=== PATIENT | female | born 1945 | race Caucasian/White ===

== ENCOUNTER 2017-01-28 07:59 | Emergency (ER) | payer MEDICARE, OTHER ==
[~2017-01-28] VITALS: Ht 162.6 cm; Wt 90.0 kg
[~2017-01-28 07:59] MED LIST: AGGRENOX; ATENOLOL; NORVASC; TRAMADOL
[2017-01-28 08:05] VITALS: Ht 162.6 cm; Wt 90.0 kg
[2017-01-28] MEDS ORDERED: morphine 4 MG/ML VIAL IV STA (08:19)
[2017-01-28] MEDS ORDERED: SOD CHLORIDE 0.9% 1,000 ML IV STA (08:19)
[2017-01-28] MEDS ORDERED: FAMOTIDINE 20 MG INJ IV STA (08:19)
[2017-01-28 08:37] LABS: ADD SCAN DIFF NO
[2017-01-28 08:49] LABS: BASOPHILS % 0.2 % (0.0-2.0); EOSINOPHILS % 0.3 % (0.0-7.0); HEMATOCRIT 40.8 % (37.0-47.0); HEMOGLOBIN 12.9 g/dl (12.0-16.0); LYMPHOCYTES # 1.9 10^3/ul (0.8-2.9); LYMPHOCYTES % 18.2 % (15.0-51.0); MEAN CORPUSCULAR HGB CONC 31.6 g/dl (32.0-37.0); MEAN CORPUSCULAR VOLUME 85.5 fl (82.0-101.0); MEAN PLATELET VOLUME 9.8 fl (7.4-10.4); MONOCYTE # 0.5 10^3/ul (0.3-0.9); MONOCYTES % 4.4 % (0.0-11.0); NEUTROPHIL # 7.8 10^3/ul (1.6-7.5); NEUTROPHILS % 74.8 % (39.0-77.0); PLATELET COUNT 290 10^3/UL (140-415); RED BLOOD COUNT 4.77 10^6/ul (4.20-5.40); RED CELL DISTRIBUTION WIDTH 14.5 % (11.5-14.5); WHITE BLOOD COUNT 10.5 10^3/ul (4.8-10.8)
[2017-01-28] MEDS ORDERED: FOLI-49 PO (08:53)
[2017-01-28] MEDS ORDERED: GABA300C16 PO (08:55)
[2017-01-28 08:56] LABS: ALANINE AMINOTRANSFERASE 22 IU/L (13-69); ALBUMIN 4.3 g/dl (3.3-4.9); ALBUMIN/GLOBULIN RATIO 0.95; ALKALINE PHOSPHATASE 58 IU/L (42-121); ANION GAP 13 (8-16); ASPARTATE AMINO TRANSFERASE 20 IU/L (15-46); BILIRUBIN,INDIRECT 0.1 mg/dl (0-1.1); BILIRUBIN,TOTAL 0.1 mg/dl (0.2-1.3); BLOOD UREA NITROGEN 10 mg/dl (7-20); CALCIUM 9.8 mg/dl (8.4-10.2); CARBON DIOXIDE 25 mmol/L (21-31); CHLORIDE 107 mmol/L (97-110); CREATININE 0.51 mg/dl (0.44-1.00); GLUCOSE 238 mg/dl (70-220); POTASSIUM 3.6 mmol/L (3.5-5.1); SODIUM 141 mmol/L (135-144); TOTAL PROTEIN 8.8 g/dl (6.1-8.1)
[2017-01-28] MEDS ORDERED: CHOL500010 PO (08:56)
[2017-01-28] MEDS ORDERED: ATEN50TA PO (08:56)
[2017-01-28] MEDS ORDERED: FURO20TA3 PO (08:57)
[2017-01-28] MEDS ORDERED: DEXL60CA2 PO (08:57)
[2017-01-28 08:58] LABS: INR 1.01; PROTIME 13.3 Sec (12.2-14.2)
[2017-01-28] MEDS ORDERED: AMLO5TAB4 PO (08:58)
[2017-01-28] MEDS ORDERED: ICOS1CAP PO (08:58)
[2017-01-28 08:59] LABS: PARTIAL THROMBOPLASTIN TIME 34.3 Sec (25.0-35.0)
[2017-01-28] MEDS ORDERED: ASPI-664 PO (08:59)
[2017-01-28] MEDS ORDERED: ASPI1CPM8 PO (09:03)
[2017-01-28] MEDS ORDERED: LEVO75TA65 PO (09:04)
[2017-01-28] MEDS ORDERED: METF500T4 PO (09:05)
[2017-01-28] MEDS ORDERED: RAMI5CAP46 PO (09:06)
[2017-01-28] MEDS ORDERED: SITA50TA2 PO (09:06)
[2017-01-28] MEDS ORDERED: DICL75TA2 PO (09:07)
[2017-01-28] MEDS ORDERED: CRES10 PO (09:07)
[2017-01-28] MEDS ORDERED: OLME1TAB5 PO (09:08)
[2017-01-28] MEDS ORDERED: ALBU18HF INHALATION (09:09)
[2017-01-28] MEDS ORDERED: TOLT2CAP7 PO (09:10)
[2017-01-28 09:12] LABS: TROPONIN-I < 0.012 ng/ml (0.00-0.12)
--- NOTE | 2017-01-28 11:03 | RADRPT ---
PROCEDURE: CT Abdomen and Pelvis without contrast. CLINICAL INDICATION: Abdominal pain. Blood in the stool. TECHNIQUE: CT scan of the abdomen and pelvis without contrast was performed on a multidetector hig h-resolution CT scanner. The patient was scanned without intravenous contrast. Coronal and sagittal reformatted images were obtained from the axial source images. Images were reviewed on a high-resol [employer] PACS workstation. The total exam CTDI equals 23.29 mGy and the total exam DLP equals 1314.40 m Gy-cm. One or more of the following dose reduction techniques were used: Automated exposure control. Adjustment of the mA and/or kV according to patient size. Use of iterative reconstruction technique. COMPARISON: None FINDINGS: CT abdomen: The lung bases are clear. The heart size is normal, without pericardial thickening or effusion. Den se mitral annulus calcification is present. The liver is normal in size and density without focal ma ss or intrahepatic biliary dilatation. The spleen is normal in size and homogeneous in density. Th e stomach is partially collapsed, but is grossly unremarkable. The pancreas as visualized is normal . The gallbladder is surgically absent. There is no evidence for biliary dilatation. The adrenal g lands are symmetric and normal. The kidneys are symmetrically unremarkable as well. There are bila teral renal cortical cysts measures up to 2.6 cm in the upper pole left kidney. There is a punctate 2 mm nonobstructing stone in the lower pole left kidney. The aorta is of normal caliber. Aortic vascular calcifications are present. There is no retroperit tompkins lymphadenopathy. The amarjit hepatis region is clear. Scattered diverticula are seen in the lef t colon without evidence of acute diverticulitis. There is a tiny fat containing periumbilical herni a. CT pelvis: The small bowel loops situated within the pelvis are unremarkable. There is approximately 3 cm hypod ensity in the left adnexa. The pelvic sidewalls and inguinal regions are clear. The sigmoid colon and rectum are remarkable for sigmoid diverticulosis. No mass, lymphadenopathy, or free fluid is se en. No acute inflammation is seen. The surrounding osseous structures are remarkable for degenerat patrice spondylosis of the spine. No osteolytic or osteoblastic lesion is detected. IMPRESSION: 1. No mass, lymphadenopathy, or focal acute inflammatory process is identified. 2. Mild diverticulosis of the descending and sigmoid colon without evidence of acute diverticulitis . 3. Approximately 3 cm hypodensity in the left adnexa. Consider pelvic ultrasound for further rashid cterization. 4. Punctate 2 mm nonobstructing stone in the left kidney. 5. Small bilateral renal cortical cysts. 6. Status post cholecystectomy. No biliary ductal dilatation. 7. Aortoiliac atherosclerosis. 8. Dense mitral annulus calcifications. 9. Tiny fat containing periumbilical hernia. RPTAT: BB .Tucker Blank MD, MD Date Time Electronically viewed and signed by .Tucker Blank MD, on 01/28/2017 11:02 .O/
[2017-01-28] MEDS ORDERED: HYDR-906 PO (11:36)
[2017-01-28] MEDS ORDERED: RANI150T9 PO (11:36)
--- NOTE | 2017-01-28 11:45 | ERD ---
ER Documentation Chief Complaint Date/Time DATE: 01/28/17 TIME: 11:40 Chief Complaint rectal bleed, bright red stools per ems report, felt dizzy, ap, then bm HPI This 71-year-old female presents emergency room for [facility] today. She also had red blood. She believed that she felt dizzy after she saw the cause of her stools. She is feeling less dizzy now. Also had midabdominal discomfort. She denies shortness of breath, nausea vomiting. She does have a history of a colonoscopy many years ago which polyps were found. ROS All systems reviewed and are negative except as per history of present illness. Medications Home Meds Active Scripts Hydrocodone/Acetaminophen ([place] 5-325 Tablet) 1 Each Tablet, 1 EACH PO Q6, #14 TAB Prov:CHANASANFORD DO 01/28/17 Ranitidine Hcl* (Zantac*) 150 Mg Tablet, 150 MG PO BID Y for EPIGASTRIC PAIN, # 30 TAB Prov:CHANASANFORD DO 01/28/17 Reported Medications Tolterodine Tartrate* (Tolterodine Tartrate* ER) 2 Mg Cap.er.24h, 2 MG PO DAILY , #30 CAP 01/28/17 Albuterol Sulfate* (Ventolin HFA*) 18 Gm Hfa.aer.ad, 1 PUFF INHALATION Q8 Y for SHORTNESS OF BREATH, #1 INHALER 01/28/17 Olmesartan/Hydrochlorothiazide (Benicar Hct 40-25 mg Tablet) 1 Each Tablet, 1 EACH PO DAILY, TAB 01/28/17 Rosuvastatin Calcium* (Crestor*) 10 Mg Tablet, 10 MG PO QHS, #30 TAB 01/28/17 Diclofenac Sodium* (Diclofenac Sodium*) 75 Mg Tablet.dr, 75 MG PO BID, #60 TAB 01/28/17 Ramipril (Ramipril) 5 Mg Capsule, 5 MG PO DAILY, CAP 01/28/17 Sitagliptin* (Januvia*) 50 Mg Tablet, 50 MG PO DAILY, #30 TAB 01/28/17 Metformin Hcl* (Metformin Hcl*) 500 Mg Tablet, 250-500 MG PO WITH DINNER, #30 TAB 01/28/17 Levothyroxine Sodium* (Levoxyl*) 75 Mcg Tablet, 75 MCG PO BEFORE BREAKFAST, #30 TAB 01/28/17 Aspirin-Dipyridamole* (Aggrenox*) 25-200 Mg Cpmp.12hr, 1 CAP PO BID, CAP 01/28/17 Aspirin (Low Dose Aspirin) 81 Mg Tablet., 81 MG PO DAILY, #30 TAB 01/28/17 Icosapent Ethyl (VASCEPA) 1 Gm Capsule, 2 GM PO BID, CAP 01/28/17 Amlodipine Besylate* (Norvasc*) 5 Mg Tablet, 5 MG PO DAILY, TAB 01/28/17 Dexlansoprazole (Dexilant) 60 Mg Cap..mp, 60 MG PO DAILY, #30 CAP 01/28/17 Furosemide* (Furosemide*) 20 Mg Tablet, 20 MG PO DAILY, #60 TAB 01/28/17 Cholecalciferol (Vitamin D3) 5,000 Unit Tablet, 5000 UNIT PO DAILY, TAB 01/28/17 Atenolol* (Atenolol*) 50 Mg Tablet, 50 MG PO BID, #60 TAB 01/28/17 Gabapentin* (Gabapentin*) 300 Mg Capsule, 300 MG PO TID, #90 CAP 01/28/17 Folic Acid* (Folic Acid*) 1 Mg Tablet, 1 MG PO DAILY, TAB 01/28/17 Discontinued Reported Medications [Aggrenox] No Conflict Check 03/22/10 [Atenolol] No Conflict Check 03/22/10 [Norvasc] No Conflict Check 03/22/10 [Tramadol] No Conflict Check 03/22/10 Allergies Allergies: Coded Allergies: Penicillins (Verified Allergy, Mild, 01/28/17) PMhx/Soc History of Surgery: No Anesthesia Reaction: No Hx Neurological Disorder: No Hx Respiratory Disorders: No Hx Cardiac Disorders: Yes (HTN) Hx Psychiatric Problems: No Hx Miscellaneous Medical Probl: No Hx Alcohol Use: No Hx Substance Use: No Hx Tobacco Use: No Smoking Status: Never smoker Physical Exam Vitals Vital Signs Date Time Temp Pulse Resp B/P Pulse Ox O2 Delivery O2 Flow Rate FiO2 01/28/17 08:37 Nasal Cannula 2 01/28/17 08:05 98.1 97 20 170/70 99 Physical Exam Const: [] No distress, pleasant, talkative Head: Atraumatic Eyes: Normal Conjunctiva ENT: Normal External Ears, Nose and Mouth. Neck: Full range of motion..~ No meningismus. Resp: Clear to auscultation bilaterally Cardio: Regular rate and rhythm, no murmurs Abd: Soft, very mild periumbilical abdominal tenderness without guarding or rebound, non distended. Normal bowel sounds Skin: No petechiae or rashes Back: No midline or flank tenderness Ext: No cyanosis, or edema Neur: Awake and alert and oriented, no focal deficits Psych: Normal Mood and Affect Result Diagram: 01/28/17 0829 01/28/17 0829 Results 24 hrs Laboratory Tests Test 01/28/17 08:29 White Blood Count 10.510^3/ul Red Blood Count 4.7710^6/ul Hemoglobin 12.9g/dl Hematocrit 40.8% Mean Corpuscular Volume 85.5fl Mean Corpuscular Hemoglobin 27.0pg Mean Corpuscular Hemoglobin Concent 31.6g/dl Red Cell Distribution Width 14.5% Platelet Count 61881^3/UL Mean Platelet Volume 9.8fl Neutrophils % 74.8% Lymphocytes % 18.2% Monocytes % 4.4% Eosinophils % 0.3% Basophils % 0.2% Nucleated Red Blood Cells % 0.0/100WBC Neutrophils # 7.810^3/ul Lymphocytes # 1.910^3/ul Monocytes # 0.510^3/ul Eosinophils # 0.010^3/ul Basophils # 0.010^3/ul Nucleated Red Blood Cells # 0.010^3/ul Prothrombin Time 13.3Sec Prothrombin Time Ratio 1.0 INR International Normalized Ratio 1.01 Activated Partial Thromboplast Time 34.3Sec Sodium Level 141mmol/L Potassium Level 3.6mmol/L Chloride Level 107mmol/L Carbon Dioxide Level 25mmol/L Anion Gap 13 Blood Urea Nitrogen 10mg/dl Creatinine 0.51mg/dl Glucose Level 238mg/dl Calcium Level 9.8mg/dl Total Bilirubin 0.1mg/dl Direct Bilirubin 0.00mg/dl Indirect Bilirubin 0.1mg/dl Aspartate Amino Transf (AST/SGOT) 20IU/L Alanine Aminotransferase (ALT/SGPT) 22IU/L Alkaline Phosphatase 58IU/L Troponin I < 0.012ng/ml Total Protein 8.8g/dl Albumin 4.3g/dl Globulin 4.50g/dl Albumin/Globulin Ratio 0.95 Current Medications Medications (Trade) Dose Ordered Sig/Eli Route PRN Reason Start Time Stop Time Status Last Admin Dose Admin Sodium Chloride (NS) 1,000 ml @ 1,000 mls/hr Q1H STAT IV 01/28/17 08:19 01/28/17 09:18 DC 01/28/17 09:09 Famotidine (Pepcid Iv) 20 mg ONCE STAT IV 01/28/17 08:19 01/28/17 08:22 DC 01/28/17 09:09 Morphine Sulfate (morphine) 4 mg ONCE STAT IV 01/28/17 08:19 01/28/17 08:22 DC 01/28/17 09:10 Procedures/MDM 71-year-old female with single episode of dark stools with bright red blood. There is not a large amount according to the patient. States that she has mild abdominal pain is had this on and off for some time. She is given a liter of fluid for her diabetic hyperglycemia as well as hydration. She felt much better after this. Her vital signs of in stable as is her hemoglobin. Is currently feeling well. Going to discharge with instructions to follow-up with her primary care doctor and get a referral for a examination grader for EGD and colonoscopy soon as he appointment can be made. Patient has seen a examination grader and may use the same one. EKG interpretation: Normal sinus rhythm, rate of 89, normal axis, first-degree AV block, no ST-T wave changes concerning for acute ischemia. 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 Departure Diagnosis: Primary Impression: Rectal bleed Additional Impression: Hyperglycemia due to type 2 diabetes mellitus Condition: Stable Patient Instructions: Hyperglycemia (High Blood Sugar), Rectal Bleed, Stable Additional Instructions: Call your primary care doctor TOMORROW for an appointment during the next 1-2 days. Get a referral for a colonoscopy and EGD from a gatroenterologist. See the doctor sooner or return here if your condition worsens before your appointment time. SANFORD ZAYAS DO Jan 28, 2017 11:45
[2017-01-28 11:52] VITALS: BP 150/80; PULSE 78; RESP 20
== END 2017-01-28 11:53 | disposition home or self-care (01) ==
LOC: E/R 07:59
DX: K62.5 Hemorrhage of anus and rectum (principal); E11.65 Type 2 diabetes mellitus with hyperglycemia; I10 Essential (primary) hypertension; Z79.82 Long term (current) use of aspirin; Z79.84 Long term (current) use of oral hypoglycemic drugs
CPT/HCPCS: 36415; 74176; 80053; 84484; 85025; 85610; 85730; 86850; 86900; 86901; 93005; 96374; 96375; 99285; J2270; J7030